=== PATIENT | male | born 1950 | race Caucasian/White ===

== ENCOUNTER 2025-02-07 19:33 | Observation (INO) | payer MEDICARE ==
--- NOTE | 2025-02-07 20:51 | ED ---
Weakness HPI - General Chief complaint: Weakness Stated complaint: Fall Time Seen by Provider: 02/07/25 19:44 Source: patient, family, EMS Mode of arrival: EMS Limitations: altered mental status - History of Present Illness Initial comments: 74-year-old male with past medical history of A-fib, CVA, prostate disorder who presents to the emergency department as a transfer from [place]. Patient was found on the ground at home. He was last seen at 3:30 AM. He was working in the yard for 30 minutes prior to that. Does not know if he fell or passed out. Patient does have a history of stroke in 2020. He takes Eliquis due to A- fib. Does have chronic right-sided deficits from the stroke. states that he was not acting himself after he fell. He does not remember the events of the day. CT of the brain was performed which was negative. He does have a hematoma to the right eyebrow. - Related Data Home Medications Medication Instructions Recorded Confirmed Acetaminophen/Diphenhydramine 2 tab PO HS 02/08/25 02/08/25 [Tylenol PM 500-25mg] Apixaban [Eliquis] 5 mg PO BID 02/08/25 02/08/25 Aspirin EC [Ecotrin Low Dose] 81 mg PO Q2D@2100 02/08/25 02/08/25 Atorvastatin [Lipitor] 40 mg PO HS 02/08/25 02/08/25 Clindamycin Phosphate 1% Swab 1 applic TOPICAL DAILY PRN 02/08/25 02/08/25 Diclofenac Sodium Gel [Voltaren 1% 1 applic TOPICAL DAILY PRN 02/08/25 02/08/25 Gel] Dronedarone [Multaq] 400 mg PO BID 02/08/25 02/08/25 Latanoprost [Latanoprost 0.005%] 1 drop BOTH EYES HS 02/08/25 02/08/25 Metoprolol Tartrate [Lopressor] 12.5 mg PO BID 02/08/25 02/08/25 Multivit-Minerals/FA/Lycopene 1 tab PO DAILY 02/08/25 02/08/25 [One-A-Day Men's 50 Plus Tablet] Oxybutynin Xl [Ditropan XL] 5 mg PO DAILY 02/08/25 02/08/25 Ubidecarenone [Coenzyme Q10] 200 mg PO HS 02/08/25 02/08/25 Allergies Allergy/AdvReac Type Severity Reaction Status Date / Time tetracycline AdvReac Swelling Verified 02/08/25 08:16 Review of Systems ROS Statement: Those systems with pertinent positive or pertinent negative responses have been documented in the HPI. ROS Other: All systems not noted in ROS Statement are negative. Past Medical History Past Medical History: Atrial Fibrillation, CVA/TIA, Prostate Disorder History of Any Multi-Drug Resistant Organisms: None Reported Past Surgical History: Orthopedic Surgery Additional Past Surgical History / Comment(s): thrombectomy, cataract, right elbow Past Psychological History: No Psychological Hx Reported Smoking Status: Former smoker Past Alcohol Use History: Occasional General Exam Limitations: altered mental status General appearance: alert, in no apparent distress Head exam: Present: normocephalic, other (Ecchymosis to the right temporal region) Eye exam: Present: normal appearance, PERRL, EOMI. Absent: scleral icterus, conjunctival injection, periorbital swelling ENT exam: Present: normal exam, mucous membranes moist Neck exam: Present: normal inspection. Absent: tenderness, meningismus, lymphadenopathy Respiratory exam: Present: normal lung sounds bilaterally. Absent: respiratory distress, wheezes, rales, rhonchi, stridor Cardiovascular Exam: Present: regular rate, normal rhythm, normal heart sounds. Absent: systolic murmur, diastolic murmur, rubs, gallop, clicks GI/Abdominal exam: Present: soft, normal bowel sounds. Absent: distended, tenderness, guarding, rebound, rigid Extremities exam: Present: normal inspection, full ROM, normal capillary refill. Absent: tenderness, pedal edema, joint swelling, calf tenderness Back exam: Present: normal inspection Neurological exam: Present: alert, oriented X3, CN II-XII intact Psychiatric exam: Present: normal affect, normal mood Skin exam: Present: warm, dry, intact, normal color. Absent: rash Course Vital Signs 02/07/25 02/07/25 02/07/25 19:39 22:27 23:49 Temperature 98.2 F Pulse Rate 61 84 60 Pulse Rate [ Pulse Oximetery ] Respiratory 18 16 16 Rate Blood Pressure 144/81 137/83 124/74 Blood Pressure [Left Arm] O2 Sat by Pulse 96 97 96 Oximetry 02/08/25 02/08/25 02/08/25 01:16 02:00 09:21 Temperature 98.8 F Pulse Rate 60 Pulse Rate [ 60 60 Pulse Oximetery ] Respiratory 17 14 Rate Blood Pressure 145/84 Blood Pressure 134/71 [Left Arm] O2 Sat by Pulse 94 L 96 Oximetry 02/08/25 02/08/25 10:00 13:19 Temperature 98.4 F Pulse Rate 78 78 Pulse Rate [ Pulse Oximetery ] Respiratory 13 16 Rate Blood Pressure 122/65 125/74 Blood Pressure [Left Arm] O2 Sat by Pulse 95 98 Oximetry Medical Decision Making - Medical Decision Making Was pt. sent in by a medical professional or institution (, PA, PROFESSOR OF GENETICS, urgent care, hospital, or care home...) When possible be specific @ -Patient was sent from [facility] Did you speak to anyone other than the patient for history (EMS, parent, family, police, friend...)? What history was obtained from this source @ -I spoke with and transferring physician from [facility] regarding the events of today Did you review nursing and triage notes (agree or disagree)? Why? @ -I reviewed and agree with nursing and triage notes Were old charts reviewed (outside hosp., previous admission, EMS record, old EKG, old radiological studies, urgent care reports/EKG's, care home records)? Report findings @ -I reviewed the testing including blood work and CT the brain which was completed at [facility] earlier today which was essentially negative Differential Diagnosis (chest pain, altered mental status, abdominal pain women, abdominal pain men, vaginal bleeding, weakness, fever, dyspnea, syncope, headache, dizziness, GI bleed, back pain, seizure, CVA, palpatations, mental health, musculoskeletal)? @ -Differential Altered Mental Status: Hypoglycemia, DKA, hypercapnia, ETOH, overdose, CO poisoning, trauma, myxedema coma, HTN encephalopathy, infection, encephalitis, psychosis, intercranial hemorrhage, hepatic encephalopathy, meningitis, CVA, this is not meant to be an all-inclusive list EKG interpreted by me (3pts min.). @ -Not done X-rays interpreted by me (1pt min.). @ -None done CT interpreted by me (1pt min.). @ -None done U/S interpreted by me (1pt. min.). @ -None done What testing was considered but not performed or refused? (CT, X-rays, U/S, labs)? Why? @ -None What meds were considered but not given or refused? Why? @ -None Did you discuss the management of the patient with other professionals (professionals i.e. , PA, PROFESSOR OF GENETICS, lab, RT, psych nurse, social services manager, icu specialist, teacher, contact officer, manager rn case)? Give summary @ -Spoke with Dr. Sommer for the admission Was smoking cessation discussed for >3mins.? @ -No Was critical care preformed (if so, how long)? @ -No Were there social determinants of health that impacted care today? How? (Homelessness, low income, unemployed, alcoholism, drug addiction, transportatio n, low edu. Level, literacy, decrease access to med. care, [place] [facility], rehab)? @ -No Was there de-escalation of care discussed even if they declined (Discuss DNR or withdrawal of care, Hospice)? DNR status @ -No What co-morbidities impacted this encounter? (DM, HTN, Smoking, COPD, CAD, Cancer, CVA, ARF, Chemo, Hep., AIDS, mental health diagnosis, sleep apnea, morbid obesity)? @ -A-fib, CVA Was patient admitted / discharged? Hospital course, mention meds given and route, prescriptions, significant lab abnormalities, going to OR and other pertinent info. @ -Upon arrival patient seen and evaluated in room 27. Thorough history and physical exam was performed. Patient still cannot describe the events of what happened today. I reviewed the transfer packet. Patient will be admitted to the hospital at this time. Spoke with Dr. Sommer for the admission Undiagnosed new problem with uncertain prognosis? @ -yes Drug Therapy requiring intensive monitoring for toxicity (Heparin, Nitro, Insulin, Cardizem)? @ -No Were any procedures done? @ -No Diagnosis/symptom? @ -Found Down, possible syncope versus fall Acute, or Chronic, or Acute on Chronic? @ -Acute Uncomplicated (without systemic symptoms) or Complicated (systemic symptoms)? @ -Complicated Side effects of treatment? @ -No Exacerbation, Progression, or Severe Exacerbation? @ -No Poses a threat to life or bodily function? How? (Chest pain, [place], [place], pneumonia, PE, COPD, DKA, ARF, appy, cholecystitis, CVA, Diverticulitis, Homicidal, Suicidal, threat to staff... and all critical care pts) @ -No - Lab Data Result diagrams: 02/08/25 06:10 02/08/25 06:10 Disposition Clinical Impression: Acute encephalopathy, Head injury Disposition: ADMITTED IP TO THIS [facility] Condition: Stable Is patient prescribed a controlled substance at d/c from ED?: No Time of Disposition: 22:05 Decision to Admit Reason: Admit from EC Decision Date: 02/07/25 Decision Time: 22:05
[2025-02-07] MEDS ORDERED: NALOXONE 0.4 MG/ML 1 ML VIAL IV PRN (22:05)
[2025-02-08 06:53] LABS: Basophils # (A) 0.04 10*3/uL (0.00-0.10); Basophils % (A) 0.5 %; Eosinophils # (A) 0.11 10*3/uL (0.04-0.35); Eosinophils % (A) 1.4 %; HCT 40.7 % (39.6-50.0); HGB 14.2 g/dL (13.0-17.0); Lymphocytes # (A) 1.42 10*3/uL (0.90-5.00); Lymphocytes % (A) 18.7 %; MCH 32.2 pg (27.0-32.0); MCHC 34.9 g/dL (32.0-37.0); MCV 92.3 fL (80.0-97.0); Mean Platelet Volume 10.6 fL (9.5-12.2); Monocytes % (A) 17.1 %; Platelet Count 268 10*3/uL (140-440); RBC 4.41 10*6/uL (4.40-5.60); RDW 13.5 % (11.5-14.5); WBC 7.59 10*3/uL (4.50-10.00)
[2025-02-08 07:14] LABS: African American GFR (CKD) >90 (>60 ml/min/1.73 sqM); Anion Gap 7 mmol/L; Blood Urea Nitrogen 16 mg/dL (9-20); Calcium 8.9 mg/dL (8.4-10.2); Carbon Dioxide 25 mmol/L (22-30); Chloride 108 mmol/L (98-107); Glucose 101 mg/dL (74-99); Non-African American GFR(CKD) >90 (>60 ml/min/1.73 sqM); Potassium 4.2 mmol/L (3.5-5.1); Sodium 140 mmol/L (137-145)
[2025-02-08] MEDS ORDERED: DICLOFENAC SODIUM GEL 100 GM TUBE TOPICAL PRN (13:06)
--- NOTE | 2025-02-08 13:18 | P.HPIM ---
History of Present Illness 74-year-old male with known history of atrial fibrillation with a vascular accident recently with residual weakness on the right side came in after a fall patient exactly does not remember how he fell but patient did not any loss of co nsciousness. Patient main symptom appears to be not remembering the event. Patient is already on Eliquis 5 mg twice a day along with aspirin 81 mg. Patient is on dronedarone and metoprolol for atrial fibrillation patient is in chronic A-fib. Patient had any fever chills nausea vomiting abdominal pain dysuria. REVIEW OF SYSTEMS: All other systems are negative except those mentioned in the HPI PHYSICAL EXAMINATION: GENERAL: The patient is alert and oriented x3, not in any acute distress. Well developed, well nourished. HEENT: Pupils are round and equally reacting to light. EOMI. No scleral icterus. No conjunctival pallor. Normocephalic, atraumatic. No pharyngeal erythema. No thyromegaly. CARDIOVASCULAR: S1 and S2 present. No murmurs, rubs, or gallops. PULMONARY: Chest is clear to auscultation, no wheezing or crackles. ABDOMEN: Soft, nontender, nondistended, normoactive bowel sounds. No palpable organomegaly. MUSCULOSKELETAL: No joint swelling or deformity. EXTREMITIES: No cyanosis, clubbing, or pedal edema. NEUROLOGICAL: Gross neurological examination did not reveal any focal deficits. SKIN: No rashes. Assessment and plan -Transient memory difficulty and fall. Patient may have had a TIA or a stroke. Although patient is already on a high-dose statin along with Eliquis and aspirin. Patient is optimized regarding his stroke medications. Will obtain physical therapy Occupational Therapy consultation neurology will evaluate the patient - Persistent atrial fibrillation patient will resume the need for medications patient is controlled patient but patient is in chronic A-fib -Hypertension - Benign prostatic hypertrophy DVT prophylaxis: Patient is on Eliquis which was resumed Past Medical History Past Medical History: Atrial Fibrillation, CVA/TIA, Prostate Disorder History of Any Multi-Drug Resistant Organisms: None Reported Past Surgical History: Orthopedic Surgery Additional Past Surgical History / Comment(s): thrombectomy, cataract, right elbow Past Psychological History: No Psychological Hx Reported Smoking Status: Former smoker Past Alcohol Use History: Occasional Medications and Allergies Home Medications Medication Instructions Recorded Confirmed Type Acetaminophen/Diphenhydramine 2 tab PO HS 02/08/25 02/08/25 History [Tylenol PM 500-25mg] Apixaban [Eliquis] 5 mg PO BID 02/08/25 02/08/25 History Aspirin EC [Ecotrin Low Dose] 81 mg PO Q2D@2100 02/08/25 02/08/25 History Atorvastatin [Lipitor] 40 mg PO HS 02/08/25 02/08/25 History Clindamycin Phosphate 1% Swab 1 applic TOPICAL DAILY PRN 02/08/25 02/08/25 History Diclofenac Sodium Gel [Voltaren 1% 1 applic TOPICAL DAILY PRN 02/08/25 02/08/25 History Gel] Dronedarone [Multaq] 400 mg PO BID 02/08/25 02/08/25 History Latanoprost [Latanoprost 0.005%] 1 drop BOTH EYES HS 02/08/25 02/08/25 History Metoprolol Tartrate [Lopressor] 12.5 mg PO BID 02/08/25 02/08/25 History Multivit-Minerals/FA/Lycopene 1 tab PO DAILY 02/08/25 02/08/25 History [One-A-Day Men's 50 Plus Tablet] Oxybutynin Xl [Ditropan XL] 5 mg PO DAILY 02/08/25 02/08/25 History Ubidecarenone [Coenzyme Q10] 200 mg PO HS 02/08/25 02/08/25 History Allergies Allergy/AdvReac Type Severity Reaction Status Date / Time tetracycline AdvReac Swelling Verified 02/08/25 08:16 Physical Exam Vitals: Vital Signs Temp Pulse Pulse Resp BP BP Pulse Ox 02/08/25 10:00 78 13 122/65 95 02/08/25 09:21 60 14 145/84 96 02/08/25 02:00 60 02/08/25 01:16 98.8 F 60 17 134/71 94 L 02/07/25 23:49 60 16 124/74 96 02/07/25 22:27 84 16 137/83 97 02/07/25 19:39 98.2 F 61 18 144/81 96 Intake and Output 02/07/25 02/08/25 02/08/25 22:59 06:59 14:59 Output Total 350 Balance -350 Output: Urine 350 Other: Voiding Method Bedpan Weight 63.503 kg Results CBC & Chem 7: 02/08/25:10 02/08/25 06:10 Labs: Abnormal Lab Results - Last 24 Hours (Table) 02/08/25 02/08/25 Range/Units 06:10 06:10 MCH 32.2 H (27.0-32.0) pg Monocytes # 1.30 H (0.20-1.00) 10*3/uL Chloride 108 H (98-107) mmol/L Glucose 101 H (74-99) mg/dL
[2025-02-08] MEDS: DRONEDARONE 400 MG TAB PO SCH (13:24)
[2025-02-08] MEDS: METOPROLOL TARTRATE 12.5 MG TAB PO SCH (13:25)
[2025-02-08] MEDS: OXYBUTYNIN XL 5 MG TAB.ER.24 PO SCH (13:25)
--- NOTE | 2025-02-08 16:33 | EEG ---
DATE OF SERVICE: 02/08/2025 ELECTROENCEPHALOGRAM REPORT PREAMBLE: This is a 74-year-old male with syncope versus seizure. The patient has a history of CVA with right-sided deficits. The patient is currently on Eliquis, aspirin, Lipitor, Multaq, Lopressor, and Ditropan. EEG FINDINGS: This is a 21-channel digital EEG recorded with video component, utilizing 10/20 international system with referential and bipolar montages. Background consists of well developed, well regulated moderate voltage activity in 9 hertz alpha. Background is posterior dominant and is reactive to eye opening and closing. Photic driving response was seen with some flash frequencies. Frequent left temporal dysrhythmic theta and some delta slowing was seen frequently during the study. Drowsiness was seen with appearance of bilaterally symmetric theta frequency rhythm. Deeper stages of sleep were not seen. No definitive focal or generalized epileptiform activity was seen. EKG channel showed no obvious arrhythmia. IMPRESSION: This is an abnormal EEG due to the presence of intermittent focal dysrhythmic slowing in the left temporal region. This is suggestive of focal cortical neuronal dysfunction and may suggest underlying structural abnormality. No definitive epileptiform activity was seen. If your suspicion for seizure is high, suggest prolonged, sleep- deprived EEG. MMODL / IJN: [id number] / YOANA
[2025-02-08] MEDS ORDERED: NON FORMULARY DRUG (Ubidecarenone [Coenzyme Q10] 200 MG Capsule) PO SCH (21:00)
[2025-02-08] MEDS: LATANOPROST 0.005% OPHTH DROPS 2.5 ML BTL BOTH EYES SCH (21:09)
[2025-02-08] MEDS: ATORVASTATIN 40 MG TAB PO SCH (22:32)
[2025-02-08] MEDS: APIXABAN 5 MG TAB PO SCH (22:32)
--- NOTE | 2025-02-09 00:02 | P.CNNES ---
History of Present Illness Consult date: 02/08/25 Requesting physician: Sandy Pickering Reason for Consult: acute encephalopathy, blunt head trauma History of Present Illness: The patient is a 74-year-old right-handed male came to the hospital by ambulance yesterday at 7:33 PM for syncopal spell versus seizure. Patient's mentions in her written report that patient has history of "cardioembolic stroke on 07/22/2021 with multiple areas, small stroke shower from heart. Patient had atrial flutter. The arteries of the head and neck showed no blockages, only 20 to 35% in the neck. Patient was placed on aspirin every other day and Eliquis". He recovered fairly well, although he walks with a limp. He does not use any assistive device, although does not walk very far. He still can take care of himself and he drives a car. He has residual some speech difficulty as he searches for words particularly when he is more tired. Prior to his stroke in 2020, he used to be real athletic was very active. Patient was brought to the hospital after he was found unresponsive. He was working outside in the yard with his . She just stepped away from him for a short while, and when she came back, at around 3:30 PM his saw him laying on the ground. She did not see him fall. When he came to, he was disoriented and neighbors helped him. He has noticed slightly increased weakness on the right side since this event. There was no tongue bite or loss of control of urine reported. His right leg is not working as good as it was prior to this event. Speech is unchanged. Patient states that he had no warning before the fall. He remembers working in the yard and the next thing he remembers is being in the hospital. He does not remember EMS ride to the hospital. Patient's mentions that even when he came to the hospital, he could not answer appropriately. EMS flowsheet not available in the chart. Vital signs on arrival blood pressure 140/81, pulse rate 61 temperature 98.2. Blood test shows normal CBC, basic metabolic panel. Patient denies any history of hypertension or diabetes. He smoked 2 pack/day for 8 years, quit 45 years ago. He drinks very occasionally with the friends. Home medications include Eliquis 5 mg twice daily, oxybutynin, coenzyme Q, Multaq, metoprolol, Lipitor 40 mg. He is compliant with Eliquis. Patient used to take aspirin 81 mg every other day, but his doctor told him to stop taking it in spring 2024. Records from [facility]: EKG showed normal sinus rhythm patient's basic metabolic panel was normal. CBC normal. WBC 5.7. Platelets 251. Troponin negative. CT head revealed encephalomalacia in the left frontal lobe. There are moderate periventricular and subcortical lucencies consistent with chronic microvascular ischemic changes. The olsen-white differentiation is maintained. No acute process. Chronic microvascular ischemic changes. CT of the cervical spine revealed no acute cervical spine fracture. UA is negative. CBC is normal. Review of Systems All pertinent positive and negative review of systems mentioned in the HPI, otherwise unremarkable. Past Medical History Past Medical History: Atrial Fibrillation, CVA/TIA, Prostate Disorder History of Any Multi-Drug Resistant Organisms: None Reported Past Surgical History: Orthopedic Surgery Additional Past Surgical History / Comment(s): thrombectomy, cataract, right elbow Type of Cardiac Device: Permanent Pacemaker Device Placement Date:: [employer] Past Psychological History: No Psychological Hx Reported Smoking Status: Former smoker Past Alcohol Use History: Occasional Medications and Allergies Home Medications Medication Instructions Recorded Confirmed Type Acetaminophen/Diphenhydramine 2 tab PO HS 02/08/25 02/08/25 History [Tylenol PM 500-25mg] Apixaban [Eliquis] 5 mg PO BID 02/08/25 02/08/25 History Aspirin EC [Ecotrin Low Dose] 81 mg PO Q2D@2100 02/08/25 02/08/25 History Atorvastatin [Lipitor] 40 mg PO HS 02/08/25 02/08/25 History Clindamycin Phosphate 1% Swab 1 applic TOPICAL DAILY PRN 02/08/25 02/08/25 History Diclofenac Sodium Gel [Voltaren 1% 1 applic TOPICAL DAILY PRN 02/08/25 02/08/25 History Gel] Dronedarone [Multaq] 400 mg PO BID 02/08/25 02/08/25 History Latanoprost [Latanoprost 0.005%] 1 drop BOTH EYES HS 02/08/25 02/08/25 History Metoprolol Tartrate [Lopressor] 12.5 mg PO BID 02/08/25 02/08/25 History Multivit-Minerals/FA/Lycopene 1 tab PO DAILY 02/08/25 02/08/25 History [One-A-Day Men's 50 Plus Tablet] Oxybutynin Xl [Ditropan XL] 5 mg PO DAILY 02/08/25 02/08/25 History Ubidecarenone [Coenzyme Q10] 200 mg PO HS 02/08/25 02/08/25 History Allergies Allergy/AdvReac Type Severity Reaction Status Date / Time tetracycline AdvReac Swelling Verified 02/08/25 08:16 Physical Examination - Vital Signs Vital Signs: Vital Signs Temp Pulse Pulse Resp BP BP BP 02/08/25 15:05 98.5 F 68 14 119/68 02/08/25 13:19 98.4 F 78 16 125/74 02/08/25 10:00 78 13 122/65 02/08/25 09:21 60 14 145/84 02/08/25 02:00 60 02/08/25 01:16 98.8 F 60 17 134/71 02/07/25 23:49 60 16 124/74 02/07/25 22:27 84 16 137/83 02/07/25 19:39 98.2 F 61 18 144/81 Pulse Ox 02/08/25 15:05 96 02/08/25 13:19 98 02/08/25 10:00 95 02/08/25 09:21 96 02/08/25 02:00 02/08/25 01:16 94 L 02/07/25 23:49 96 02/07/25 22:27 97 02/07/25 19:39 96 Intake and Output 02/08/25 02/08/25 02/08/25 06:59 14:59 22:59 Output Total 350 0 Balance -350 0 Output: Urine 350 0 Other: Voiding Method Bedpan Weight 63.503 kg Patient is an elderly male, very pleasant, in no acute distress. Patient is somewhat thin built. Patient has bruise over the right anabaptist. Patient is alert awake oriented to time place and person. Speech and language functions are mostly normal. Patient can name and repeat very well. No aphasia or dysarthria. Attention, concentration and fund of knowledge is adequate. On cranial nerve examination, pupils are equal, round and reacting to light, visual jones are full on confrontation, with no neglect on double simultaneous stimulation. Extraocular muscles are intact with no nystagmus. Face is symmetric, tongue protrudes to the midline. Palatal elevation and sensation normal, hearing and shoulder shrug normal, facial sensation normal. On muscle strength testing, there right upper extremity pronation about 15 degree with elbow flexion. The muscle strength is normal in the left arm and left leg. Right upper extremity is normal at the biceps, triceps and cissp but 5-in the right deltoid. In the right lower extremity, hip flexion 4+, knee extension 5, ankle dorsiflexion 0, eversion 0, inversion 5, toe extension 0, toe flexion 1-2. Patient has dystonic inversion of the right foot. Deep tendon reflexes are (right/left) biceps 2+/1+, brachioradialis 2+/1+, knees 3/2+ and plantars up on the right, down on the left. Sensory to touch is decreased in the right arm and leg as compared to the left side but is equal on the face bilaterally. Cerebellar function showed ataxia for [id number] and [id number] testing only with the right side. Tone is increased on the right side and bulk of muscles normal. Gait deferred.. On general examination, there is no carotid bruit or murmur, S1-S2 audible. Chest is clear on consultation. Abdomen is soft nontender. No organomegaly, bowel sounds present. Peripheral pulses are present. No peripheral edema. Results - Laboratory Findings CBC and BMP: 02/08/25 06:10 02/08/25 06:10 Abnormal Lab Findings: Abnormal Labs 02/08/25 02/08/25 06:10 06:10 MCH 32.2 H Monocytes # 1.30 H Chloride 108 H Glucose 101 H Assessment and Plan Assessment: * Syncopal spell with prolonged postictal state. Rule out seizure. 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 Patient also has noticed worsening of his baseline right hemiparesis since this event. Uncertain if related to postictal Stephen's paralysis, versus ?CVA. * EEG was performed which was abnormal due to presence of intermittent focal dysrhythmic slowing in the left temporal region. This is suggestive of focal cortical neuronal dysfunction and may suggest underlying structural abnormality. No definitive epileptiform activity was seen. If your suspicion for seizures is high, suggest prolonged, sleep deprived EEG. * Patient will be continued on Eliquis 5 mg twice daily. Patient used to be on aspirin 81 mg every other day, which was discontinued in spring 2024. Patient has been resumed on aspirin 81 mg every other day. * Recommend cardiology consultation for pacemaker interrogation to rule out arrhythmia. * If no arrhythmia or obvious cause of syncope identified with pacemaker int errogation, then I would suggest placing patient on antiepileptic medication like Keppra or Vimpat. Patient wants to hold off on antiepileptic medication until cardiac cause of syncope has been ruled out. * Check orthostatics * MRI of the brain cannot be performed as patient has a pacemaker. * Patient informed of [place] state law of no driving unless seizure-free for 6 months, climbing ladders, operating dangerous machinery or unsupervised swimming. * Dr. Coello to cover neurology service over the weekend. * Thank you for the consult. Time with Patient: Greater than 30
[2025-02-09] MEDS: MULTIVITAMINS, THERA 1 EACH TAB PO SCH (08:24)
--- NOTE | 2025-02-09 12:02 | CONS ---
CONSULTATION HISTORY OF PRESENT ILLNESS: Gabby is a 74-year-old gentleman with history of atrial flutter, sick sinus syndrome status post permanent pacemaker, dyslipidemia, who comes to hospital, having had a transient episode of confusion. It is unclear if the patient had a syncope, but he certainly was found on the ground and did not remember almost for an hour as to what happened. 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 He also has a history of mild carotid stenosis. The patient is on Eliquis. Normally walks with a limp, but during this hospitalization, he seemed to have lost his ability to walk. There is a neurologist on the case, who is evaluating all these. We have been consulted to evaluate any cardiac issues related to his syncope. He did not have any documented bradycardia. He did not have any tachyarrhythmias. He does not have chest pain or shortness of breath, and workup otherwise is benign and unremarkable. PAST MEDICAL HISTORY: Significant for atrial flutter, history of CVA, sick sinus syndrome, status post permanent pacemaker. MEDICATIONS: At home included: 1. Eliquis 5 b.i.d. 2. Aspirin. 3. Lipitor 40 daily. 4. Multaq 400 b.i.d. 5. Lopressor 12.5 b.i.d. ALLERGIES: As charted. FAMILY HISTORY: Negative for premature coronary artery disease. SOCIAL HISTORY: Negative for current smoking, EtOH abuse, or drug abuse. REVIEW OF SYSTEMS: 14 out of 14 review of systems has been performed, pertinents are as documented. PHYSICAL EXAMINATION: GENERAL: Comfortable at rest. VITAL SIGNS: Stable. NECK: There is no jugular venous distention. Carotid upstroke is normal. There is no bruit. CHEST: Reveals good air entry bilaterally. HEART: Reveals first and second heart sounds. Systolic murmur at the apex. ABDOMEN: Soft. EXTREMITIES: Exam of the extremities did not reveal any edema. Peripheral pulses are felt. ASSESSMENT AND PLAN: 1. Typical atrial flutter with controlled ventricular rate. 2. Sick sinus syndrome, status post permanent pacemaker. 3. History of cerebrovascular accident. 4. History of dyslipidemia. 5. Syncope, probably noncardiac in origin. MMODL / IJN: [id number] /
--- NOTE | 2025-02-09 13:09 | CA ---
Transthoracic Echo Report Name: Gabby Lee Age: 74 Gender: M : 1950 Exam Date: 02/09/2025 11:47 Exam Location: [facility] Ht (in): 70 Wt (lb): 140 Ordering Physician: Ernie Brandon MD ([id number]) Attending/Referring Phys: Aleksandr MARCH Change Room Attendant Sanrda Roman RDCS Procedure CPT: Indications: near syncope hx of afib Cardiac Hx: Technical Quality: Fair Contrast 1: Total Dose (mL): Contrast 2: Total Dose (mL): MEASUREMENTS (Male / Female) Normal Values 2D ECHO LV Diastolic Diameter PLAX 4.2 cm 4.2 - 5.9 / 3.9 - 5.3 cm LV Systolic Diameter PLAX 2.3 cm IVS Diastolic Thickness 1.1 cm 0.6 - 1.0 / 0.6 - 0.9 cm LVPW Diastolic Thickness 1.1 cm 0.6 - 1.0 / 0.6 - 0.9 cm LV Relative Wall Thickness 0.5 RV Internal Dim ED PLAX 2.7 cm LVOT Diameter 1.9 cm LA Systolic Diameter LX 4.4 cm 3.0 - 4.0 / 2.7 - 3.8 cm LV Diastolic Volume MOD 4C 49.0 cm??? LV Systolic Volume MOD 4C 13.9 cm??? LV Ejection Fraction MOD 4C 71.7 % LV Cardiac Index MOD 4C 1512.8 cm???/min???m??? LV Diastolic Length 4C 6.3 cm LV Systolic Length 4C 5.2 cm M-MODE Aortic Root Diameter MM 2.9 cm LA Systolic Diameter MM 4.5 cm LA Ao Ratio MM 1.6 AV Cusp Separation MM 1.8 cm DOPPLER AI Peak Velocity 292.4 cm/s AI Peak Gradient 34.2 mmHg AI Pressure Half Time 962.2 ms Mitral E Point Velocity 100.4 cm/s Mitral A Point Velocity 2.6 cm/s Mitral E to A Ratio 38.7 MV Deceleration Time 224.9 ms MV E' Velocity 6.8 cm/s Mitral E to MV E' Ratio 14.8 TR Peak Velocity 252.2 cm/s TR Peak Gradient 25.4 mmHg FINDINGS Left Ventricle Left ventricular ejection fraction is estimated at 55-60 %. Mildly increased septal wall thickness.Normal left ventricular systolic function with no obvious regional wall motion abnormalities. Left ventricular cavity size normal. Right Ventricle Normal right ventricular size and function. Right ventricular systolic pressure within normal limits. Right Atrium Mild right atrial dilatation. Catheter/pacemaker wire in the right atrial cavity. Left Atrium Mildly increased left atrial diameter. Mitral Valve Structurally normal mitral valve. Mild mitral regurgitation. No mitral stenosis. Aortic Valve Trileaflet aortic valve. Mild aortic regurgitation. No aortic stenosis. Tricuspid Valve Structurally normal tricuspid valve. Mild tricuspid regurgitation. No tricuspid stenosis. Pulmonic Valve Structurally normal pulmonic valve. Mild pulmonic regurgitation. No pulmonic stenosis. Pericardium No pericardial or pleural effusion. Aorta Normal size aortic root and proximal ascending aorta. CONCLUSIONS Normal LV systolic function Mild mitral regurgitation Previewed by: Dr. Ernie Brandon MD (Electronically Signed) Final Date: 09 February 2025 13:09
[2025-02-09] MEDS: levETIRAcetam 500 MG TAB PO SCH (13:23)
[2025-02-09] MEDS: MIDODRINE 5 MG TAB PO SCH (13:23)
[2025-02-09 15:01] VITALS: BP 108/58; PULSE 81; RESP 17; TEMP 98.2
--- NOTE | 2025-02-09 15:35 | P.PN ---
Subjective Progress Note Date: 02/09/25 The patient is a 74-year-old male who is seen in neurologic follow-up, in collaboration with Elisa Scruggs, via teleneurology. The patient's chart has been reviewed. The patient reportedly has no recall of the events surrounding admission. His is present at the bedside at the time of the evaluation. Patient reportedly has a history of stroke with right-sided residual weakness. Patient is typically able to ambulate. On the day of presentation, patient had increased weakness involving his right lower greater than upper extremity. There was reportedly a prolonged postictal state. EEG was performed which did not reveal specific epileptiform activity however there were noted to be left t emporal sharp waves consistent with the patient's previous stroke. Objective - Vital Signs Vital signs: Vital Signs Temp 97.6 F 02/09/25 07:00 Pulse 89 02/09/25 08:00 Resp 14 02/09/25 07:00 BP 102/64 02/09/25 08:00 Pulse Ox 90 L 02/09/25 07:00 FiO2 Intake & Output 02/08/25 02/09/25 02/09/25 18:59 06:59 18:59 Intake Total 118 Output Total 0 225 Balance 118 -225 Weight 63.503 kg Intake: Oral 118 Output: Urine 0 225 Other: Voiding Method Urinal # Voids 1 - Exam General Patient is reclining in the bed. He is well-nourished, well-developed and in no acute distress. HEENT: Head is atraumatic, normocephalic. Fundus not visualized. There is no scleral icterus. Mucous members are moist. Neurological examination Mental status: Patient is awake, alert and oriented x 3. His speech is clear. There is no dysarthria or aphasia. Cranial nerves: 2-12 grossly intact Motor: Left upper and lower extremity strength 5/5. Right upper extremity strength 5/5. Right hip flexor 3+/5. Right plantar flexor 3/5. Dorsiflexor 0/5. - Labs CBC & Chem 7: 02/08/25 06:10 02/08/25 06:10 Assessment and Plan Assessment: Syncopal spell with prolonged postictal state. Rule out seizure. 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 Patient used to be on aspirin 81 mg every other day, which was discontinued in spring 2024. Patient has been resumed on aspirin 81 mg every other day. * Recommend cardiology consultation for pacemaker interrogation to rule out arrhythmia. * If no arrhythmia or obvious cause of syncope identified with pacemaker interr ogation, then I would suggest placing patient on antiepileptic medication like Keppra or Vimpat. Patient wants to hold off on antiepileptic medication until cardiac cause of syncope has been ruled out. * The patient is advised to follow-up with his outpatient neurologist for possible ambulatory EEG and further determination regarding need for antiepileptic medication * Keppra was started, 500 mg twice daily for possible seizure * Patient informed of [place] state law of no driving unless seizure-free for 6 months, climbing ladders, operating dangerous machinery or unsupervised swimming. * The patient is neurologically stable for discharge Time with Patient: Greater than 30 (40 minutes were spent caring for this patient today including, obtaining history, examining the patient, reviewing chart documentation, labs, placing orders and creating this note)
--- NOTE | 2025-02-09 15:52 | P.DS ---
Providers Date of admission: 02/07/25 22:09 Attending physician: Alta Sommer Consults: 02/07/25 22:05 Consult Physician Urgent Consulting Provider: Reina May Consult Reason/Comments: acute encephalopathy, blunt head trauma Do you want consulting provider notified?: Yes 02/08/25 17:54 Consult Physician Routine Consulting Provider: Anthony Gunderson Consult Reason/Comments: Syncope, rule out arrythmia, for PM interrogation Do you want consulting provider notified?: Yes Primary care physician: [facility] Course: 74-year-old male with known history of atrial fibrillation with a vascular accident recently with residual weakness on the right side came in after a fall patient exactly does not remember how he fell but patient did not any loss of consciousness. Patient main symptom appears to be not remembering the event. Patient is already on Eliquis 5 mg twice a day along with aspirin 81 mg. Patient is on dronedarone and metoprolol for atrial fibrillation patient is in chronic A-fib. Patient had any fever chills nausea vomiting abdominal pain dysuria. 02/09/2025 Patient had an EEG yesterday which did not show any obvious epileptiform discharges but there is some slowing in the temporal region. Patient was eval by neurology the differential is as per neurology reevaluation as part paralysis or a CVA. Upon further questioning patient denies any syncopal episode denies any seizure-like activity but patient does not actually know what happened during that time it appears he lost track of her memory of that event. Neurology recommended Keppra as cardiology did not believe patient syncope if he had any is related to cardiac causes. I had a lengthy discussion with the neurologist that evaluated the patient yesterday. After lengthy discussion with him my suspicion that patient had a seizure is extremely low. Same thing was discussed with the patient at length and gave him an option of going home on Keppra but patient does not want to be on another medication like an antiseizure medication. Patient will need to follow-up with neurology as an outpatient and will need ambulatory EEG, and was informed of [place] state law no driving u nless seizure-free for 6 months, avoid climbing ladders operating dangerous machinery and unsupervised swimming. Patient's orthostatics are positive I believe patient is significantly dehydr ated was working in the sun. Patient will be given a liter of IV fluids and recheck the orthostatics and will be discharged after that. In a nutshell patient may or may not have had a syncope my suspicion is low for seizure patient may be dehydrated will be given IV fluids. Dehydration intravascular volume depletion as evidenced by positive orthostatic vitals.. After lengthy discussion with the patient the patient was made not to prescribe Keppra or midodrine. PHYSICAL EXAMINATION: GENERAL: The patient is alert and oriented x3, not in any acute distress. Well developed, well nourished. HEENT: Pupils are round and equally reacting to light. EOMI. No scleral icterus. No conjunctival pallor. Normocephalic, atraumatic. No pharyngeal erythema. No thyromegaly. CARDIOVASCULAR: S1 and S2 present. No murmurs, rubs, or gallops. PULMONARY: Chest is clear to auscultation, no wheezing or crackles. ABDOMEN: Soft, nontender, nondistended, normoactive bowel sounds. No palpable organomegaly. MUSCULOSKELETAL: No joint swelling or deformity. EXTREMITIES: No cyanosis, clubbing, or pedal edema. NEUROLOGICAL: Gross neurological examination did not reveal any focal deficits. SKIN: No rashes. Assessment and plan -Transient memory difficulty. Possibility of syncope versus low possibility of seizure and Stephen's paralysis. Patient has right-sided residual paralysis will benefit from physical therapy at home. This will be arranged on Tuesday - Persistent atrial fibrillation patient will resume the need for medications patient is controlled patient but patient is in chronic A-fib -Hypertension - Benign prostatic hypertrophy Patient Condition at Discharge: Stable Plan - Discharge Summary Discharge Rx Participant: No New Discharge Prescriptions: Continue Diclofenac Sodium Gel [Voltaren 1% Gel] 1 applic TOPICAL DAILY PRN PRN Reason: Pain Clindamycin Phosphate 1% Swab 1 applic TOPICAL DAILY PRN PRN Reason: rosacea on face Atorvastatin [Lipitor] 40 mg PO HS Metoprolol Tartrate [Lopressor] 12.5 mg PO BID Dronedarone [Multaq] 400 mg PO BID Acetaminophen/Diphenhydramine [Tylenol PM 500-25mg] 2 tab PO HS Ubidecarenone [Coenzyme Q10] 200 mg PO HS Multivit-Minerals/FA/Lycopene [One-A-Day Men's 50 Plus Tablet] 1 tab PO DAILY Aspirin EC [Ecotrin Low Dose] 81 mg PO Q2D@2100 Oxybutynin Xl [Ditropan XL] 5 mg PO DAILY Latanoprost [Latanoprost 0.005%] 1 drop BOTH EYES HS Apixaban [Eliquis] 5 mg PO BID Discharge Medication List Acetaminophen/Diphenhydramine [Tylenol PM 500-25mg] 2 tab PO HS 02/08/25 [History] Apixaban [Eliquis] 5 mg PO BID 02/08/25 [History] Aspirin EC [Ecotrin Low Dose] 81 mg PO Q2D@2100 02/08/25 [History] Atorvastatin [Lipitor] 40 mg PO HS 02/08/25 [History] Clindamycin Phosphate 1% Swab 1 applic TOPICAL DAILY PRN 02/08/25 [History] Diclofenac Sodium Gel [Voltaren 1% Gel] 1 applic TOPICAL DAILY PRN 02/08/25 [History] Dronedarone [Multaq] 400 mg PO BID 02/08/25 [History] Latanoprost [Latanoprost 0.005%] 1 drop BOTH EYES HS 02/08/25 [History] Metoprolol Tartrate [Lopressor] 12.5 mg PO BID 02/08/25 [History] Multivit-Minerals/FA/Lycopene [One-A-Day Men's 50 Plus Tablet] 1 tab PO DAILY 02/08/25 [History] Oxybutynin Xl [Ditropan XL] 5 mg PO DAILY 02/08/25 [History] Ubidecarenone [Coenzyme Q10] 200 mg PO HS 02/08/25 [History] Follow up Appointment(s)/Referral(s): Gustavo Barros DO [Primary Care Provider] - 3 Days Discharge Disposition: HOME SELF-CARE
[2025-02-09] MEDS ORDERED: ASPIRIN 81 MG PO SCH (21:00)
== END 2025-02-09 18:15 | disposition home health service (06) ==
LOC: EC 19:33 → 6NMEDSUR 22:09
PROVIDERS: ADMIT Hospitalist; ATTEND Hospitalist
DX: G93.40 Encephalopathy, unspecified (principal); E86.0 Dehydration; I48.19 Other persistent atrial fibrillation; I69.351 Hemiplegia and hemiparesis following cerebral infarction affecting right dominant side; S00.11XA Contusion of right eyelid and periocular area, initial encounter; S09.90XA Unspecified injury of head, initial encounter; R94.01 Abnormal electroencephalogram [EEG]; I48.3 Typical atrial flutter; I49.5 Sick sinus syndrome; E78.5 Hyperlipidemia, unspecified; I65.29 Occlusion and stenosis of unspecified carotid artery; N40.0 Benign prostatic hyperplasia without lower urinary tract symptoms; I69.328 Other speech and language deficits following cerebral infarction; G93.89 Other specified disorders of brain; W19.XXXA Unspecified fall, initial encounter; Y92.007 Garden or yard of unspecified non-institutional (private) residence as the place of occurrence of the external cause; Z88.1 Allergy status to other antibiotic agents; Z87.891 Personal history of nicotine dependence; Z79.01 Long term (current) use of anticoagulants; Z79.82 Long term (current) use of aspirin; Z79.899 Other long term (current) drug therapy; Z95.0 Presence of cardiac pacemaker
CPT/HCPCS: 99285; 95816; 93306; 93005; 80048; 85025; G0378 ×3